=== PATIENT | female | born 1980 | race Caucasian/White ===

== ENCOUNTER 2022-08-05 14:05 | Emergency (ER) | payer MEDICARE, MEDICAID ==
[~2022-08-05] VITALS: Ht 165 cm; Wt 58.9 kg
[2022-08-05] MEDS ORDERED: NS IV 1000 ML 1,000 ML IV STA (14:28)
[2022-08-05] MEDS ORDERED: KETOROLAC 30 MG/ML VIAL IVP STA (14:28)
[2022-08-05] MEDS ORDERED: PROCHLORPERAZINE 10 MG/2ML INJ (COMPAZINE) IV ONE (14:30)
[2022-08-05] MEDS ORDERED: diphenhydrAMINE 50 MG/ML INJ (BENADRYL) IVP ONE (14:30)
--- NOTE | 2022-08-05 14:36 | ED Abdominal Pain ---
General Chief Complaint: Abdominal/GI Problems Stated Complaint: ABD PAIN W/VOMITING Nursing Triage Note: pt presents to ed via ems from home with complaints of n/v abdominal pain that started while she was at work earlier today. Source of Information: Patient Exam Limitations: No Limitations History of Present Illness Date Seen by Provider: Aug 05, 2022 Time Seen by Provider: 14:10 Initial Comments 41-year-old female presents the ED via EMS with complaints of left upper abdominal pain and vomiting since 10 AM this morning. Reports she is vomited approximately 6 times. She also reports a headache that started last night. States that she has been getting headaches recently. Denies fevers, chest pain, shortness of air, diarrhea, dysuria. Last bowel movement yesterday and normal. She has had a complete hysterectomy and does not have menstrual cycles. Allergies and Home Medications Allergies Coded Allergies: No Known Drug Allergies (Verified , 08/10/07) Patient Home Medication List Home Medication List Reviewed: Yes Ondansetron (Ondansetron Odt) 4 Mg Tab.rapdis, 4 MG SL Q4H PRN for N AUSEA/VOMITING Prescribed by: Leila Brown on 08/05/22 1607 Review of Systems Review of Systems Constitutional: see HPI Past Buodaia-Qngxao-Gxahzt Hx Patient Social History Tobacco Use?: No Substance use?: No Alcohol Use?: No Pt feels they are or have been: No Immunizations Up To Date Influenza Vaccine Up-to-Date: Yes; Up-to-Date First/Initial COVID19 Vaccinat: yes Second COVID19 Vaccination Foreign: yes Past Medical History Surgery/Hospitalization HX: hx of opiate addiction Reproductive Disorders: No Physical Exam Vital Signs Vital Signs - First Documented 08/05/22 14:10 Temp 36.2 Pulse 80 Resp 16 B/P (MAP) 124/85 (98) Pulse Ox 96 Capillary Refill : Less Than 3 Seconds Height/Weight/BMI Height: '" Weight: lbs. oz. kg; 21.00 BMI Method: General Appearance: WD/WN, no apparent distress Neck: supple, normal inspection Respiratory: lungs clear, normal breath sounds, no respiratory distress, no accessory muscle use Cardiovascular: regular rate, rhythm Gastrointestinal: normal bowel sounds, soft, tenderness (Mid and left upper quadrant) Extremities: normal range of motion, normal inspection Neurologic/Psychiatric: alert, normal mood/affect Skin: normal color, warm/dry Progress/Results/Core Measures Results/Orders Lab Results Laboratory Tests Test 08/05/22 14:13 08/05/22 14:29 Range/Units White Blood Count 7.0 4.3-11.0 10^3/uL Red Blood Count 4.38 3.80-5.11 10^6/uL Hemoglobin 12.5 11.5-16.0 g/dL Hematocrit 38 35-52 % Mean Corpuscular Volume 87 80-99 fL Mean Corpuscular Hemoglobin 29 25-34 pg Mean Corpuscular Hemoglobin Concent 33 32-36 g/dL Red Cell Distribution Width 13.0 10.0-14.5 % Platelet Count 270 130-400 10^3/uL Mean Platelet Volume 10.3 9.0-12.2 fL Immature Granulocyte % (Auto) 0 % Neutrophils (%) (Auto) 81 H 42-75 % Lymphocytes (%) (Auto) 12 12-44 % Monocytes (%) (Auto) 4 0-12 % Eosinophils (%) (Auto) 2 0-10 % Basophils (%) (Auto) 0 0-10 % Neutrophils # (Auto) 5.7 1.8-7.8 10^3/uL Lymphocytes # (Auto) 0.9 L 1.0-4.0 10^3/uL Monocytes # (Auto) 0.3 0.0-1.0 10^3/uL Eosinophils # (Auto) 0.1 0.0-0.3 10^3/uL Basophils # (Auto) 0.0 0.0-0.1 10^3/uL Immature Granulocyte # (Auto) 0.0 0.0-0.1 10^3/uL Sodium Level 139 135-145 MMOL/L Potassium Level 4.2 3.6-5.0 MMOL/L Chloride Level 105 98-107 MMOL/L Carbon Dioxide Level 26 21-32 MMOL/L Anion Gap 8 5-14 MMOL/L Blood Urea Nitrogen 19 H 7-18 MG/DL Creatinine 0.75 0.60-1.30 MG/DL Estimat Glomerular Filtration Rate 101 BUN/Creatinine Ratio 25 Glucose Level 85 70-105 MG/DL Calcium Level 9.1 8.5-10.1 MG/DL Corrected Calcium 8.7 8.5-10.1 MG/DL Total Bilirubin 0.4 0.1-1.0 MG/DL Aspartate Amino Transf (AST/SGOT) 22 5-34 U/L Alanine Aminotransferase (ALT/SGPT) 12 0-55 U/L Alkaline Phosphatase 49 40-136 U/L Total Protein 8.2 6.4-8.2 GM/DL Albumin 4.5 3.2-4.5 GM/DL Amylase Level 59 25-125 U/L Lipase 7 L 8-78 U/L Urine Color YELLOW Urine Clarity CLEAR Urine pH 7.5 5-9 Urine Specific [place] 1.015 L 1.016-1.022 Urine Protein NEGATIVE NEGATIVE Urine Glucose (UA) NEGATIVE NEGATIVE Urine Ketones NEGATIVE NEGATIVE Urine Nitrite NEGATIVE NEGATIVE Urine Bilirubin NEGATIVE NEGATIVE Urine Urobilinogen 0.2 < = 1.0 MG/DL Urine Leukocyte Esterase NEGATIVE NEGATIVE Urine RBC (Auto) NEGATIVE NEGATIVE Urine RBC NONE /HPF Urine WBC RARE /HPF Urine Squamous Epithelial Cells 0-2 /HPF Urine Crystals NONE /LPF Urine Bacteria NEGATIVE /HPF Urine Casts NONE /LPF Urine Mucus NEGATIVE /LPF Urine Culture Indicated NO My Orders Orders - LEILA BROWN APRN Ua Culture If Indicated (08/05/22 14:10) Urine Bedside (08/05/22 14:10) Ketorolac Injection (Toradol Injection) (08/05/22 14:28) Ns Iv 1000 Ml (Sodium Chloride 0.9%) (08/05/22 14:28) Comprehensive Metabolic Panel (08/05/22 14:28) Lipase (08/05/22 14:28) Amylase (08/05/22 14:28) Cbc With Automated Diff (08/05/22 14:28) Ct Abdomen/Pelvis W (08/05/22 14:28) Diphenhydramine Injection (Benadryl Inje (08/05/22 14:30) Prochlorperazine Injection (Compazine In (08/05/22 14:30) Prochlorperazine Injection (Compazine In (08/05/22 14:46) Iohexol Injection (Omnipaque 350 Mg/Ml 1 (08/05/22 15:15) Ns (Ivpb) (Sodium Chloride 0.9% Ivpb Bag (08/05/22 15:15) Ed Iv/Invasive Line Start (08/05/22 15:07) Medications Given in ED Vital Signs/I&O 08/05/22 08/05/22 14:10 16:20 Temp 36.2 Pulse 80 84 Resp 16 18 B/P (MAP) 124/85 (98) 117/76 Pulse Ox 96 98 08/06/22 00:00 Intake Total 1000 ml Balance 1000 ml Blood Pressure Mean: 98 Progress Progress Note : Time: 14:20 Progress Note Patient seen and evaluated, resting in bed, no acute distress. Based on exam and symptoms, differential diagnosis includes but not limited to gastroenteritis, migraine, pancreatitis. Work-up initiated including CBC, CMP, amylase, lipase, UA, CT abdomen pelvis. IV fluids, Toradol, Benadryl, Compazine ordered. [address] reviewed. CBC grossly negative, neutrophil percentage slightly elevated 81. CMP shows slightly low BUN 19, amylase and lipase normal. UA negative for infection. CT shows moderate amount of stool throughout, otherwise no acute abnormalities. Results discussed with patient. Patient reports she is feeling better. Patient agrees with discharge after completing IV fluids. Discharge instructions and return precautions provided. Diagnostic Imaging Diagonstic Imaging: CT Plain Films/CT/US/NM/MRI: abdomen, pelvis Comments [facility] [place]. [place], [place] NAME: CARLOS NOBLES [facility] REC#: [id number] PT STATUS: REG ER : 1980 PHYSICIAN: LEILA BROWN APRN ADMIT DATE: 08/05/22/ER Draft Date of Exam:08/05/22 CT ABDOMEN/PELVIS W PROCEDURE: CT abdomen and pelvis with contrast. TECHNIQUE: Multiple contiguous axial images were obtained through the abdomen and pelvis after administration of intravenous contrast. Auto Exposure Controls were utilized during the CT exam to meet ALARA standards for radiation dose reduction. All CT scans use one or more of the following dose optimizing techniques: automated exposure control, MA and/or KvP adjustment based on patient size and exam type or iterative reconstruction. INDICATION: Nausea and vomiting and abdominal pain. COMPARISON: No prior studies are available for comparison. FINDINGS: Lung bases are clear. No focal liver mass is identified. Gallbladder is surgically absent. There is no biliary ductal dilatation. Pancreas and spleen are unremarkable. No adrenal mass is identified. Kidneys are unremarkable. There is no hydronephrosis. Aorta is nonaneurysmal. There is a large stool load throughout the colon, suggestive of constipation. No bowel obstruction is seen. There is no free fluid or fluid collection identified. Bladder is decompressed. Uterus appears to be surgically absent. No inflammatory changes are seen. No abdominal or pelvic lymphadenopathy is identified. Bony structures are nonacute. IMPRESSION: 1. Moderate stool load throughout the colon, suggestive of constipation. The study is otherwise unremarkable. Dictated on workstation # [id number] Dict: 08/05/22 1525 Trans: 08/05/22 1535 [id number] [id number] Interpreted by: RAZIA KHOURY MD Electronically signed by: Departure Impression Primary Impression: Abdominal pain Additional Impressions: Nausea and vomiting Constipation Disposition: HOME, SELF-CARE Condition: Stable Departure-Patient Inst. Referrals: NO,LOCAL PHYSICIAN (PCP/Family) Primary Care Physician Patient Instructions: Constipation, Adult (DC) Add. Discharge Instructions: Take Zofran as needed for nausea, it may cause constipation so only take when needed. Slowly restart your diet. Start with clear liquids and slowly advance to full liquids. You may then start with bland foods like the BRAT diet. This includes bananas, rice, applesauce, toast. Once you are tolerating those, you can resume normal eating. Return for severe pain, recurrent vomiting, or any other new, concerning, or worsening symptoms. All discharge instructions reviewed with patient and/or family. Voiced understanding. Scripts Ondansetron (Ondansetron Odt) 4 Mg Tab.rapdis 4 MG SL Q4H PRN for NAUSEA/VOMITING, #15 TAB 0 Refills Prov: LEILA BROWN APRN 08/05/22 LEILA BROWN APRN Aug 05, 2022 14:36
[2022-08-05 14:39] LABS: BILIRUBIN,URINE NEGATIVE (NEGATIVE); CLARITY,URINE CLEAR; COLOR,URINE YELLOW; GLUCOSE, URINE (UA) NEGATIVE (NEGATIVE); KETONES,URINE NEGATIVE (NEGATIVE); LEUKOCYTE ESTERASE ,URINE NEGATIVE (NEGATIVE); NITRITE,URINE NEGATIVE (NEGATIVE); PH,URINE 7.5 (5-9); PROTEIN,URINE NEGATIVE (NEGATIVE)
[2022-08-05 14:39] LABS: BASOPHILS % (AUTO) 0 % (0-10); EOSINOPHILS # (AUTO) 0.1 10^3/uL (0.0-0.3); EOSINOPHILS % (AUTO) 2 % (0-10); HEMATOCRIT 38 % (35-52); HEMOGLOBIN 12.5 g/dL (11.5-16.0); LYMPHOCYTES # (AUTO) 0.9 10^3/uL (1.0-4.0); LYMPHOCYTES % (AUTO) 12 % (12-44); MEAN CORPUSCULAR HEMOGLOBIN 29 pg (25-34); MEAN CORPUSCULAR HGB CONC 33 g/dL (32-36); MEAN CORPUSCULAR VOLUME 87 fL (80-99); MEAN PLATELET VOLUME 10.3 fL (9.0-12.2); MONOCYTES # (AUTO) 0.3 10^3/uL (0.0-1.0); MONOCYTES % (AUTO) 4 % (0-12); NEUTROPHILS # (AUTO) 5.7 10^3/uL (1.8-7.8); NEUTROPHILS % (AUTO) 81 % (42-75); PLATELET COUNT 270 10^3/uL (130-400)
[2022-08-05 14:42] LABS: ALBUMIN 4.5 GM/DL (3.2-4.5); POTASSIUM 4.2 MMOL/L (3.6-5.0)
[2022-08-05 14:43] LABS: CALCIUM 9.1 MG/DL (8.5-10.1)
[2022-08-05 14:45] LABS: TOTAL PROTEIN 8.2 GM/DL (6.4-8.2)
[2022-08-05 14:46] LABS: BILIRUBIN,TOTAL 0.4 MG/DL (0.1-1.0)
[2022-08-05] MEDS ORDERED: PROCHLORPERAZINE 10 MG/2ML INJ (COMPAZINE) ONE (14:46)
[2022-08-05 14:47] LABS: BACTERIA,URINE NEGATIVE /HPF; SQUAMOUS EPITHELIAL CELL,UR 0-2 /HPF; WBC,URINE RARE /HPF
[2022-08-05 14:48] LABS: CREATININE SERUM 0.75 MG/DL (0.60-1.30)
[2022-08-05] MEDS ORDERED: NS 100 ML (IVPB) BAG IV ONE (15:15)
[2022-08-05] MEDS ORDERED: IOHEXOL 350 MG/ML 100 ML (OMNIPAQUE 350) VIAL IV ONE (15:15)
[2022-08-05] MEDS ORDERED: NS IV 1000 ML 1,000 ML IV SCH (15:15)
--- NOTE | 2022-08-05 15:36 | Diagnostic Imaging Report ---
PROCEDURE: CT abdomen and pelvis with contrast. TECHNIQUE: Multiple contiguous axial images were obtained through the abdomen and pelvis after administration of intravenous contrast. Auto Exposure Controls were utilized during the CT exam to meet ALARA standards for radiation dose reduction. All CT scans use one or more of the following dose optimizing techniques: automated exposure control, MA and/or KvP adjustment based on patient size and exam type or iterative reconstruction. INDICATION: Nausea and vomiting and abdominal pain. COMPARISON: No prior studies are available for comparison. FINDINGS: Lung bases are clear. No focal liver mass is identified. Gallbladder is surgically absent. There is no biliary ductal dilatation. Pancreas and spleen are unremarkable. No adrenal mass is identified. Kidneys are unremarkable. There is no hydronephrosis. Aorta is nonaneurysmal. There is a large stool load throughout the colon, suggestive of constipation. No bowel obstruction is seen. There is no free fluid or fluid collection identified. Bladder is decompressed. Uterus appears to be surgically absent. No inflammatory changes are seen. No abdominal or pelvic lymphadenopathy is identified. Bony structures are nonacute. IMPRESSION: 1. Moderate stool load throughout the colon, suggestive of constipation. The study is otherwise unremarkable. Dictated by: Dictated on workstation # [id number]
[2022-08-05] MEDS ORDERED: ONDA4TAB11 SL (16:07)
[2022-08-05 16:20] VITALS: BP 117/76
== END 2022-08-05 16:20 | disposition home or self-care (01) ==
LOC: EDUNIT# 14:05 → ER 14:07
DX: K59.00 Constipation, unspecified (principal); R11.2 Nausea with vomiting, unspecified; D72.828 Other elevated white blood cell count; Z90.710 Acquired absence of both cervix and uterus
CPT/HCPCS: 36415; 74177; 80053; 81000; 82150; 83690; 84703; 85025